=== PATIENT | male | born 1980 ===

== ENCOUNTER 2017-02-05 22:52 | Emergency (ER) | payer SELFPAY ==
[2017-02-05] MEDS ORDERED: Lidocaine 1% 20 ML MDV ONE (23:13)
--- NOTE | 2017-02-05 23:28 | EDM.PDOC ---
ED HPI GENERAL MEDICAL PROBLEM - General Chief Complaint: Skin Complaint Stated Complaint: PT HAS LUMP ON NECK Time Seen by Provider: 02/05/17 23:22 - History of Present Illness INITIAL COMMENTS - FREE TEXT/NARRATIVE: HISTORY AND PHYSICAL: History of present illness: Patient 36-year-old black male presents with concern of cutaneous abscess to his left neck this has had some spontaneous drainage of last several days this started when he squeezed an area that he thought was a pimple. No fever chills nausea vomiting or other complaints Review of systems: As per history of present illness and below otherwise all systems reviewed and negative. Past medical history: As per history of present illness and as reviewed below otherwise noncontributory. Surgical history: As per history of present illness and as reviewed below otherwise noncontributory. Social history: No reported history of drug or alcohol abuse. Family history: As per history of present illness and as reviewed below otherwise noncontributory. Physical exam: HEENT: Atraumatic, normocephalic, pupils reactive, negative for conjunctival pallor or scleral icterus, mucous membranes moist, throat clear, neck with an area of approximately 2 cm with central fluctuance and small area of purulent drainage this area is located at the base of the left neck lateral, nontender, trachea midline. Lungs: Clear to auscultation, breath sounds equal bilaterally, chest nontender. Heart: S1S2, regular, negative for clicks, rubs, or JVD. Abdomen: Soft, nondistended, nontender. Negative for masses or hepatosplenomegaly. Negative for costovertebral tenderness. Pelvis: Stable nontender. Genitourinary: Deferred. Rectal: Deferred. Extremities: Atraumatic, negative for cords or calf pain. Neurovascular unremarkable. Neuro: Awake, alert, oriented. Cranial nerves II through XII unremarkable. Cerebellum unremarkable. Motor and sensory unremarkable throughout. Exam nonfocal. Diagnostics: None Therapeutics: Patient prepped and draped in sterile mannera size 1% lidocaine without epinephrine incision and drainage of the 11 blade scalpel and quarter inch iodoform packing was accomplished there was approximately 1 mL of mine pus returned patient tolerated procedure well wound was dressed Impression: #1 cutaneous abscess left neck status post incision and drainage Definitive disposition and diagnosis as appropriate pending reevaluation and review of above. ED ROS GENERAL - Review of Systems Review Of Systems: ROS reveals no pertinent complaints other than HPI. ED EXAM, SKIN/RASH Exam: See Below (The dictation) Course - Orders/Labs/Meds Meds: Medications Discontinued Medications Generic Name Dose Route Start Last Admin Trade Name [place] PRN Reason Stop Dose Admin Lidocaine HCl Confirm 02/05/17 23:13 Xylocaine 1% Administered 02/05/17 23:14 Dose 20 ml .ROUTE .STK-MED ONE Departure - Departure Time of Disposition: 23:27 Disposition: Home, Self-Care 01 Condition: Good Clinical Impression: Cutaneous abscess - Discharge Information Referrals: PCP,None [Primary Care Provider] - Additional Instructions: The following information is given to patients seen in the emergency department who are being discharged to home. This information is to outline your options for follow-up care. We provide all patients seen in our emergency department with a follow-up referral. The need for follow-up, as well as the timing and circumstances, are variable depending upon the specifics of your emergency department visit. If you don't have a primary care physician on staff, we will provide you with a referral. We always advise you to contact your personal physician following an emergency department visit to inform them of the circumstance of the visit and for follow-up with them and/or the need for any referrals to a consulting specialist. The emergency department will also refer you to a specialist when appropriate. This referral assures that you have the opportunity for followup care with a specialist. All of these measure are taken in an effort to provide you with optimal care, which includes your followup. Under all circumstances we always encourage you to contact your private physician who remains a resource for coordinating your care. When calling for followup care, please make the office aware that this follow-up is from your recent emergency room visit. If for any reason you are refused follow-up, please contact the [facility] emergency department at and asked to speak to the emergency department charge nurse. [facility] Specialty [facility] - General Surgery Professional Building [address] [place] [address], [address] [place] [address] Follow-up 24 hours for packing removal and wound reevaluation call schedule routine appointment with general surgery return as needed as discussed Motrin/ Tylenol as directed
[2017-02-06] MEDS ORDERED: Lidocaine 1% 20 ML MDV INJECT ONE (02:31)
== END 2017-02-05 23:40 | disposition home or self-care (01) ==
LOC: MW.ED 22:52
DX: L02.11 Cutaneous abscess of neck (principal)
CPT/HCPCS: 10061; 99281; 99282